=== PATIENT | female | born 1955 | race Caucasian/White ===

== ENCOUNTER 2022-09-23 09:30 | Outpatient (CLI) | payer MEDICARE, BC, SELFPAY | END 2022-09-23 09:31 | disposition home or self-care (01) | PROVIDERS: Visit Provider Family Medicine | DX: Z00.00 Encounter for general adult medical examination without abnormal findings (principal); I10 Essential (primary) hypertension; F41.9 Anxiety disorder, unspecified; Z11.59 Encounter for screening for other viral diseases; Z13.6 Encounter for screening for cardiovascular disorders | CPT/HCPCS: 80053; 80061; 86803 ==

== ENCOUNTER 2022-11-25 11:39 | Outpatient (CLI) | payer MEDICARE, BC, SELFPAY | END 2022-11-25 11:40 | disposition home or self-care (01) | LOC: OP CLINIC 11:40 | PROVIDERS: PCP Family Medicine; Visit Provider Surgery | DX: Z12.11 Encounter for screening for malignant neoplasm of colon (principal); K64.9 Unspecified hemorrhoids; K63.89 Other specified diseases of intestine; K63.5 Polyp of colon; K62.1 Rectal polyp; K57.30 Diverticulosis of large intestine without perforation or abscess without bleeding | CPT/HCPCS: 45380; 45385; 88305; 99153; J2250; J3010 ==

== ENCOUNTER 2023-12-04 09:17 | Outpatient (CLI) | payer MEDICARE, BC, SELFPAY ==
[2023-12-04 12:42] LABS: Creatinine Urine 99.2 mg/dL
[2023-12-04 12:47] LABS: Microalbumin Creatinine Ratio 10 mg/g (0-30); Microalbumin Urine < 1 mg/dL
== END 2023-12-04 09:18 | disposition home or self-care (01) ==
PROVIDERS: PCP Family Medicine; Visit Provider Family Medicine
DX: I10 Essential (primary) hypertension (principal); E66.9 Obesity, unspecified; F32.A Depression, unspecified; Z13.6 Encounter for screening for cardiovascular disorders; Z13.1 Encounter for screening for diabetes mellitus
CPT/HCPCS: 80053; 80061; 82043; 82570

== ENCOUNTER 2024-12-20 15:03 | Outpatient (CLI) | payer MEDICARE, SELFPAY | END 2024-12-20 15:04 | disposition home or self-care (01) | LOC: NFLDREF 12-22 02:05 | PROVIDERS: PCP Family Medicine; Referring Provider Family Medicine; Visit Provider Family Medicine | DX: I10 Essential (primary) hypertension (principal); E66.9 Obesity, unspecified; F41.9 Anxiety disorder, unspecified; F32.A Depression, unspecified; Z13.6 Encounter for screening for cardiovascular disorders; Z13.1 Encounter for screening for diabetes mellitus | CPT/HCPCS: 80053; 80061; 82043; 82570 ==